=== PATIENT | female | born 1970 | race Caucasian/White ===

== ENCOUNTER → 2016-09-14 | Outpatient (CLI) | payer OTHER ==
[2016-09-14 20:43] LABS: BASO % 0.4 %; BASO ABS # 0.04 K/uL (0-0.2); COMPLETE YES; EOS % 1.9 %; HEMATOCRIT 42.7 % (37-47); IG% 0.2 %; LYMPH % 44.6 %; LYMPH ABS # 4.53 K/uL (1.2-3.4); MEAN CELL VOLUME 88.8 fL (80-100); MEAN CORPUSCULAR HEMOGLOBIN 31.6 pg (25-34); MEAN CORPUSCULAR HGB CONC 35.6 g/dl (32-36); MEAN PLATELET VOLUME 12.3 fL (7.4-10.4); MONO % 8.1 %; NEUT % 44.8 %; PLATELET COUNT 239 K/uL (130-400); RED BLOOD COUNT 4.81 M/uL (4.2-5.4); WHITE BLOOD COUNT 10.15 K/uL (4.8-10.8)
== END | disposition home or self-care (01) ==
LOC: C.LABSPEC 19:07
PROVIDERS: ATTEND Family Medicine
DX: M79.644 Pain in right finger(s) (principal); L03.011 Cellulitis of right finger

== ENCOUNTER → 2016-10-09 | Outpatient (CLI) | payer OTHER ==
[2016-10-09 14:55] LABS: BASO % 1.1 %; BASO ABS # 0.09 K/uL (0-0.2); COMPLETE YES; EOS % 1.8 %; HEMATOCRIT 40.6 % (37-47); IG% 0.1 %; LYMPH % 41.6 %; LYMPH ABS # 3.54 K/uL (1.2-3.4); MEAN CELL VOLUME 88.5 fL (80-100); MEAN CORPUSCULAR HEMOGLOBIN 31.4 pg (25-34); MEAN CORPUSCULAR HGB CONC 35.5 g/dl (32-36); MEAN PLATELET VOLUME 11.9 fL (7.4-10.4); MONO % 6.4 %; PLATELET COUNT 199 K/uL (130-400); RED BLOOD COUNT 4.59 M/uL (4.2-5.4)
[2016-10-09 15:03] LABS: ALT/SGPT 31 U/L (12-78); AST/SGOT 20 U/L (15-37); BLOOD UREA NITROGEN 21 mg/dl (7-18); BUN/CREATININE RATIO 23.9 (10-20); CALCIUM 8.9 mg/dl (8.5-10.1); CARBON DIOXIDE 27 mmol/L (21-32); CHLORIDE 104 mmol/L (98-107); CREATININE 0.88 mg/dl (0.60-1.20); GLUCOSE 109 mg/dl (70-99); POTASSIUM 3.8 mmol/L (3.5-5.1); SODIUM 140 mmol/L (136-145)
[2016-10-09 15:06] LABS: ALB/GLOB RATIO 1.1 (0.9-2); ALKALINE PHOSPHATASE 68 U/L (45-117); CHOLESTEROL 122 mg/dl (0-200); CHOLESTEROL/HDL RATIO 2.7; HDL CHOLESTEROL 45 mg/dl; LDL CHOLESTEROL CALCULATED 57 mg/dl; TRIGLYCERIDES 102 mg/dl (0-150); VERY LOW DENSITY LIPOPROT CALC 20 mg/dl
[2016-10-10 07:28] LABS: ESTIMATED AVERAGE GLUCOSE 137 mg/dl; HA1C FLAG Normal (Normal)
== END | disposition home or self-care (01) ==
LOC: C.LABSPEC 08:20
PROVIDERS: ATTEND Family Medicine
DX: E11.9 Type 2 diabetes mellitus without complications (principal); I10 Essential (primary) hypertension; E78.5 Hyperlipidemia, unspecified

== ENCOUNTER → 2016-10-10 | Outpatient (CLI) | payer OTHER | END | disposition home or self-care (01) | LOC: C.LABSPEC 10:04 | PROVIDERS: ATTEND Family Medicine | DX: E11.9 Type 2 diabetes mellitus without complications (principal) ==

== ENCOUNTER → 2017-06-14 | Outpatient (CLI) | payer OTHER ==
[2017-06-14 18:41] LABS: BASO % 0.4 %; BASO ABS # 0.04 K/uL (0-0.2); COMPLETE YES; EOS % 2.7 %; HEMATOCRIT 39.4 % (37-47); IG% 0.3 %; LYMPH % 33.7 %; LYMPH ABS # 3.27 K/uL (1.2-3.4); MEAN CELL VOLUME 90.2 fL (80-100); MEAN CORPUSCULAR HEMOGLOBIN 30.9 pg (25-34); MEAN CORPUSCULAR HGB CONC 34.3 g/dl (32-36); MEAN PLATELET VOLUME 11.8 fL (7.4-10.4); MONO % 5.1 %; NEUT % 57.8 %; PLATELET COUNT 215 K/uL (130-400); RED BLOOD COUNT 4.37 M/uL (4.2-5.4); WHITE BLOOD COUNT 9.71 K/uL (4.8-10.8)
[2017-06-14 18:49] LABS: ALT/SGPT 42 U/L (12-78); BLOOD UREA NITROGEN 21 mg/dl (7-18); BUN/CREATININE RATIO 22.3 (10-20); CALCIUM 9.4 mg/dl (8.5-10.1); CARBON DIOXIDE 29 mmol/L (21-32); CHLORIDE 105 mmol/L (98-107); CREATININE 0.92 mg/dl (0.60-1.20); GLUCOSE 167 mg/dl (70-99); POTASSIUM 4.5 mmol/L (3.5-5.1); SODIUM 139 mmol/L (136-145)
[2017-06-14 18:52] LABS: ALKALINE PHOSPHATASE 95 U/L (45-117); AST/SGOT 27 U/L (15-37)
[2017-06-15 06:11] LABS: ESTIMATED AVERAGE GLUCOSE 137 mg/dl; HA1C FLAG Normal (Normal)
== END | disposition home or self-care (01) ==
LOC: C.LABSPEC 18:01
PROVIDERS: ATTEND Family Medicine
DX: E11.9 Type 2 diabetes mellitus without complications (principal)